=== PATIENT | female | born 1965 | race Caucasian/White ===

== ENCOUNTER 2020-01-19 16:02 | Emergency (ER) | payer MEDICARE, SELFPAY ==
--- NOTE | ~2020-01-19 | CT_ITS ---
EXAMINATION: CT abdomen pelvis w con EXAM DATE: 01/19/2020 20:04 INDICATION: Right upper quadrant pain. Symptoms 2 weeks. TECHNIQUE: Spiral CT of the abdomen and pelvis was performed following intravenous injection of 100 m L Omnipaque 350. Axial, coronal and sagittal images were reviewed. The dose-length product (DLP) fo r this examination was 1662.06 mGy-cm. The exposure was tailored according to patient size (auto mA exposure control), and iterative reconstruction (ASIR) was used as additional dose reduction techniqu e. There is no prior study for comparison. FINDINGS: There is hepatic steatosis without suspicious focal lesion identified. Spleen, adrenal glan ds, pancreas are unremarkable. There are cholecystectomy clips. Small amount of pneumobilia. The lef t kidney is not identified. The right kidney is unremarkable, no right-sided hydronephrosis. The uter us is anteverted and morphologically normal. The bladder is unremarkable. There is no retroperiton eal or pelvic lymphadenopathy. The appendix is not positively visualized. There is no pericecal inflammatory change to suggest appe ndicitis. There is mild scattered colonic diverticulosis. There is no adjacent inflammatory change t o suggest diverticulitis. The stomach and small bowel are unremarkable. There is expected amount of colonic stool. No free intraperitoneal gas. The heart is normal in size. There are no pericardia l or pleural effusions. The lung bases are unremarkable. The bones are unremarkable. IMPRESSION: 1. No acute intra-abdominal findings. 2. Scattered colonic diverticulosis. 3. Absent left kidney. Reviewed, dictated and finalized at location A.
[2020-01-19 16:03] VITALS: BP 181/89; PULSE 84; RESP 17; TEMP 36.4; O2SAT 99
[2020-01-19 16:34] LABS: Basophils Percent Auto 0.6 % (0.2-1.2); Eosinophils Absolute Auto 0.2 K/mm3 (0-0.3); Eosinophils Percent Auto 2.6 % (0-4.4); Hematocrit 41.3 % (37.0-47.0); Hemoglobin 13.4 g/dL (12.0-15.0); Immature Granulocyte Absolute 0.02 K/mm3 (0.00-0.031); Immature Granulocyte Percent A 0.3 % (0-0.5); Lymphocytes Absolute Auto 1.63 K/mm3 (0.9-3.2); Lymphocytes Percent Auto 24.5 % (18.3-44.2); Mean Corpuscular HGB Conc 32.4 g/dl (32-36); Mean Corpuscular Hemoglobin 27.6 pg (26-34); Mean Platelet Volume 8.7 fl (7.4-10.4); Monocytes Absolute Auto 0.4 K/mm3 (0.1-0.6); Monocytes Percent Auto 5.7 % (2.6-8.5); Neutrophils Absolute Auto 4.4 K/mm3 (1.3-6.7); Neutrophils Percent Auto 66.3 % (45.5-73.1); Platelet Count Result 216 k/mm3 (150-375); Red Blood Count 4.86 M/mm3 (4.2-5.4); Red Cell Distribution Width 13.7 % (11.5-14.5); White Blood Count 6.6 K/mm3 (4.5-10.0)
[2020-01-19 16:46] LABS: Alanine Aminotransferase 33 U/L (4-35); Albumin Level 3.8 g/dL (3.5-5.1); Alkaline Phosphatase 137 U/L (38-126); Anion Gap 8 mmol/L (8-16); Aspartate Amino Transferase 44 U/L (14-36); Bilirubin,Total 0.4 mg/dL (0.2-1.3); Blood Urea Nitrogen 18 mg/dL (7-17); Calcium 9.5 mg/dL (8.4-10.2); Carbon Dioxide 28 mmol/L (22-30); Chloride 100 mmol/L (98-107); Estimated CRCL calculation 89 ml/min; Estimated Glomerular Filt Rate > 60; Glucose 389 mg/dL (65-105); Lipase 135 U/L (23-300); Potassium 4.8 mmol/L (3.4-5.0); Sodium 136 mmol/L (137-145)
--- NOTE | 2020-01-19 17:26 | ED.ABDPAIN ---
HPI - Abdominal Pain General Chief Complaint: Abdominal Pain Stated Complaint: abdominal pain Time Seen by Provider: 01/19/20 17:06 Source: patient Mode of arrival: ambulatory Limitations: no limitations History of Present Illness HPI narrative: This is a 54 year old female that presents to the ER for upper abdominal pain x 2 weeks. Reports an intermittent pulling pain in the upper abdomen. Reports history of fibromyalgia and that her abdominal pain is making her fibromyalgia flare. Reports she has tried over the counter medications with little relief. Denies fever, nausea, vomiting, diarrhea, dysuria, hematuria. Related Data Allergies Allergy/AdvReac Type Severity Reaction Status Date / Time adhesive tape Allergy Severe RASH, Verified 10/04/19 09:11 BLISTERS amoxicillin Allergy Unknown RASH Verified 10/04/19 09:11 Review of Systems Review of Systems: Narrative: CONSTITUTIONAL: Denies fever CARDIOVASCULAR: Denies chest pain RESPIRATORY: Denies dyspnea. GASTROINTESTINAL: Reports abdominal pain. Denies nausea, vomiting, or diarrhea. GENITOURINARY: Denies dysuria or hematuria. MUSCULOSKELETAL: Reports back pain, joint pain, and myalgia. All systems reviewed & are unremarkable except as noted in HPI and below PMFSH Past Medical History Medical History (Updated 01/19/20 @ 22:16 by Shazia Wilkins PA-C) History of fibromyalgia History of gastroesophageal reflux (GERD) Social History Social History (System 10/04/19 @ 09:11 by Joana Abreu) Gender identity (if verbalized by the patient): Female Exam Narrative: Exam Narrative: GENERAL: Well-appearing, well-nourished, and in no acute distress. HEAD: Normocephalic, atraumatic. EYES: EOMI. CHEST: Clear to auscultation. No respiratory distress. No wheezes rales or rhonchi HEART: Regular rate and rhythm. No murmur heard. Normal peripheral pulses. ABDOMEN: Soft, nondistended, normal active bowel sounds. Mild tenderness to palpation of the epigastrium, without guarding EXTREMITIES: Normal range of motion. No edema. SKIN: Warm, dry, no rash. NEURO: No focal deficits. Alert and oriented x3. PSYCH: Normal mood and affect Course Vital Signs Vital signs: Vital Signs Temperature 97.5 F L 01/19/20 16:03 Pulse Rate 84 01/19/20 16:03 Respiratory Rate 17 01/19/20 16:03 Blood Pressure 181/89 H 01/19/20 16:03 Pulse Oximetry 99 01/19/20 16:03 Temperature 97.5 F L 01/19/20 16:03 Pulse Rate 84 01/19/20 16:03 Respiratory Rate 17 01/19/20 16:03 Blood Pressure 181/89 H 01/19/20 16:03 Pulse Oximetry 99 01/19/20 16:03 MDM - Abdominal Pain MDM Narrative Medical decision making narrative: Patient presents the emergency department for upper abdominal pain x2 weeks. She is afebrile and nontoxic-appearing. Blood pressure elevated 181/89 on arrival, this improved after pain medications. CBC is without leukocytosis. Metabolic panel significant for elevation in blood glucose to 389. Otherwise no concerning findings. Lipase is normal. UA without evidence of infection. CT scan abdomen and pelvis is without acute findings. Patient was updated on case findings. She reports continued pain even after GI cocktail, Tylenol, Pepcid, Bentyl, and Valium. Offered her admission for further evaluation of intractable abdominal pain. She would like to follow-up with her GI doctor outpatient. Patient is stable and felt appropriate for further outpatient evaluation. She was given warnings to return to the ER Lab Data Attestation: I reviewed the patient's lab results. Result diagrams: 01/19/20 16:30 01/19/20 16:30 Labs: Lab Results 01/19/20 01/19/20 01/19/20 Range/Units 16:30 16:30 20:58 WBC 6.6 (4.5-10.0) K/mm3 RBC 4.86 (4.2-5.4) M/mm3 Hgb 13.4 (12.0-15.0) g/dL Hct 41.3 (37.0-47.0) % MCV 85.0 (80-100) fl MCH 27.6 (26-34) pg MCHC 32.4 (32-36) g/dl RDW 13.7 (11.5-14.5) % Plt Count
--- NOTE | 2020-01-19 18:43 | PC.NURSE ---
Pt is hard stick. This RN tried 2 times having another RN try now.
--- NOTE | 2020-01-19 18:52 | PC.NURSE ---
Unable to gain IV access. Informed DIONNA Wilkins of this. and that pt has yet to have CTscan
[2020-01-19] MEDS: FAMOTIDINE 20 MG/2 ML VIAL IV PUSH (19:17)
[2020-01-19] MEDS: SODIUM CHLORIDE 0.9% IV 1,000 ML 999 ML IV CONT (19:18)
[2020-01-19 21:05] LABS: Glucose Point of Care 296 (65-105)
[2020-01-19] MEDS: BELLADONNA ALK/PHENOB ELIX 10 ML, MAG HYDROX/ALUMINUM HYD/SIMETH 30 ML, LIDOCAINE HCL 2... PO (21:12)
[2020-01-19] MEDS: DICYCLOMINE HCL INJ 20 MG/2 ML VIAL IM (21:13)
[2020-01-19 21:14] LABS: Add Urine Microscopic? YES; Appearance Urine Clear (Clear); Bilirubin Urine Negative (Negative); Blood Urine Negative (Negative); Color Urine Yellow (Yellow); Glucose Urine UA 3+ mg/dL (Negative); Ketones Urine Negative (Negative); Leukocyte Esterase Ur Negative LEU/UL (Negative); Nitrate Urine Negative (Negative); Protein Urine 1+ mg/dL (Negative); RBC Urine 0-2 /hpf (0-2); Squamous Epithelial Cell Urine Occasional /hpf (Few); Urobilinogen Urine Negative mg/dL (<2.0); WBC Urine 0-3 /hpf
[2020-01-19 21:16] LABS: Specific Grav Ur 1.039 (1.001-1.035)
[2020-01-19] MEDS: diazePAM INJ (*CRX) 10 MG/2 ML SYRINGE 5 MG IV PUSH (21:26)
[2020-01-19 22:23] VITALS: BP 157/90; PULSE 78; RESP 18; O2SAT 96
== END 2020-01-19 22:23 | disposition home or self-care (01) ==
PROVIDERS: Emergency Provider Family Medicine; PCP Family Medicine
DX: R10.10 Upper abdominal pain, unspecified (principal); M79.7 Fibromyalgia; K21.9 Gastro-esophageal reflux disease without esophagitis; K57.90 Diverticulosis of intestine, part unspecified, without perforation or abscess without bleeding; Z90.5 Acquired absence of kidney
CPT/HCPCS: 36415; 74177; 80053; 81001; 82948; 83690; 85025; 96365; 96372; 96375; 99284; A9270; J0131; J0500; J3360; J7030; Q9967

== ENCOUNTER → 2020-09-10 10:39 | Outpatient (CLI) | payer MEDICARE, SELFPAY ==
--- NOTE | ~2020-09-10 | XR_ITS ---
XR knee RT min 4V DATE: 09/10/2020 11:55 INDICATION: Bilateral knee pain TECHNIQUE: [place] and standing AP, PA and lateral views COMPARISON: None FINDINGS: There is severe tricompartment osteoarthritis, particularly at the patellofemoral and media l compartments, which are prominently narrowed, with prominent particular spurring at the lateral com partment as well. There is mild lateral subluxation at the femoral tibial joint. No fracture or dislocation or joint effusion. No periosteal reaction or bone destruction. No radiopaq ue intra-articular loose body or chondrocalcinosis is evident. Moderate osteopenia. IMPRESSION: Severe tricompartment osteoarthritis Reviewed, dictated and finalized at location A.
--- NOTE | ~2020-09-10 | XR_ITS ---
EXAMINATION: XR shoulder LT min 2V DATE: 09/10/2020 11:54 INDICATION: Left shoulder pain TECHNIQUE: AP internally and externally rotated, AP oblique externally rotated and axillary views of the left shoulder were obtained. COMPARISON: None FINDINGS: Normal alignment. No fracture. Severe left glenohumeral osteoarthritis. Mild left acromioclavicular osteoarthritis. Soft tissues are unremarkable. Visualized portions of the left lung are clear. IMPRESSION: Severe left glenohumeral osteoarthritis. Reviewed, dictated and finalized at location A.
--- NOTE | ~2020-09-10 | XR_ITS ---
EXAMINATION: XR shoulder RT min 2V DATE: 09/10/2020 11:54 INDICATION: Right shoulder pain TECHNIQUE: AP internally and externally rotated, AP oblique externally rotated and axillary views of the right shoulder were obtained. COMPARISON: 08/14/2015 FINDINGS: Normal alignment. No fracture. Status post distal right clavicle excision. Mild right glenohumeral o steoarthritis. Small focus of subtle amorphous calcification projecting near the posterior facet of t he greater tuberosity consistent with infraspinatus calcific tendinitis. Soft tissues are otherwise u nremarkable. Visualized portion of the right lung are clear. IMPRESSION: 1. Mild right glenohumeral osteoarthritis and chronic osteotomy the lateral right clavicle. 2. Distal right infraspinatus calcific tendinitis. Reviewed, dictated and finalized at location A. IMPRESSION: 1. Mild right glenohumeral osteoarthritis and chronic osteotomy the lateral rig ht clavicle. 2. Distal right infraspinatus calcific tendinitis.
--- NOTE | ~2020-09-10 | XR_ITS ---
XR knee LT min 4V DATE: 09/10/2020 11:55 INDICATION: Bilateral knee pain TECHNIQUE: [place] and standing AP, PA and lateral views COMPARISON: None FINDINGS: There is severe tricompartment osteoarthritis with severe narrowing of all 3 compartment wilian int spaces, very prominent periarticular spurring of the patellofemoral compartment, with spurring al so noted at the medial and particularly lateral compartments. There is mild lateral subluxation at th e femoral tibial compartment. No fracture or dislocation, periosteal reaction or bone destruction. There is moderate osteopenia. No joint effusion. IMPRESSION: Severe tricompartment osteoarthritis Osteopenia Reviewed, dictated and finalized at location A.
== END ==
PROVIDERS: PCP Family Medicine; Visit Provider Nurse Practitioner Adult Health
DX: M17.0 Bilateral primary osteoarthritis of knee (principal); M19.012 Primary osteoarthritis, left shoulder; M19.011 Primary osteoarthritis, right shoulder; M75.31 Calcific tendinitis of right shoulder
CPT/HCPCS: 73030; 73564

== ENCOUNTER → 2021-04-08 12:15 | Outpatient (CLI) | payer MEDICARE, SELFPAY ==
--- NOTE | ~2021-04-08 | XR_ITS ---
EXAMINATION: XR lumbar spine 2-3V DATE: 04/08/2021 13:02 INDICATION: Low back pain TECHNIQUE: Anteroposterior and lateral views of the lumbar spine, and cone-down lateral view of the l umbosacral junction were obtained. COMPARISON: CT, 01/19/2020 FINDINGS: There is no fracture, dislocation, or subluxation. The vertebral body heights are normal. T here is mild loss of intervertebral disc space height at L5-S1 and in the lower thoracic spine. Small degenerative osteophytes project from the anterior endplates of multiple vertebral bodies. There is mild facet osteoarthritis of the lower lumbar spine. Tubal ligation clips are noted in the left pelvi s. IMPRESSION: 1. Mild lumbar spondylosis without acute findings. Reviewed, dictated and finalized at location F. L RIGHTS REPRESENTATIVE
== END ==
PROVIDERS: PCP Family Medicine; Visit Provider Family Medicine
DX: M47.817 Spondylosis without myelopathy or radiculopathy, lumbosacral region (principal)
CPT/HCPCS: 72100

== ENCOUNTER 2022-03-22 10:27 | Emergency (ER) | payer MEDICARE, SELFPAY ==
[2022-03-22 11:05] VITALS: BP 151/91; PULSE 89; RESP 18; TEMP 36.2; O2SAT 99
--- NOTE | 2022-03-22 11:46 | ED.URI ---
HPI - URI/Sore Throat General Chief Complaint: Upper Respiratory Infection Stated Complaint: Cough,Chest Pain Time Seen by Provider: 03/22/22 11:46 Source: patient Mode of arrival: ambulatory Limitations: no limitations History of Present Illness HPI Narrative: 56-year-old female presents with complaint of cough, chest congestion for 1 week. No chest pain or shortness of breath. States that she most likely got influenza RSV from her grandson's. Had fever for 2 days but resolved. Is taking [id number] cough medication to treat her symptoms. Reports history of diabetes, wanted to make sure she did not need antibiotic. All systems reviewed and negative except as noted above. Related Data Home Medications Medication Instructions Recorded Confirmed escitalopram oxalate 10 mg tablet 10 mg DAILY 03/22/22 03/22/22 hydrocodone 10 mg-acetaminophen 1 tablet QID 03/22/22 03/22/22 325 mg tablet insulin aspart U-100 100 unit/mL 100 unit subcut DIRECTED 03/22/22 03/22/22 (3 mL) subcutaneous pen (Novolog Flexpen U-100 Insulin aspart) insulin glargine 100 unit/mL 100 unit subcut DIRECTED 03/22/22 03/22/22 subcutaneous solution (Lantus U-100 Insulin) omeprazole 40 mg capsule,delayed 40 mg DAILY 03/22/22 03/22/22 release Allergies Allergy/AdvReac Type Severity Reaction Status Date / Time adhesive tape Allergy Severe RASH, Verified 03/22/22 11:25 BLISTERS amoxicillin Allergy Unknown RASH Verified 03/22/22 11:25 Review of Systems Review of Systems: CONSTITUTIONAL: Denies fever, chills, or sweats. EYES: Denies visual changes, redness, or discharge. ENT: Reports rhinorrhea, congestion. Denies sore throat, or otalgia. CARDIOVASCULAR: Denies chest pain, palpitations, or edema. RESPIRATORY: reports cough. Denies dyspnea. GASTROINTESTINAL: Denies abdominal pain, nausea, vomiting, or diarrhea. GENITOURINARY: Denies dysuria or hematuria. SKIN: Denies rash or itching. MUSCULOSKELETAL: Denies back pain, joint pain, or myalgia. NEUROLOGIC: Denies headache, numbness, or weakness. PSYCHIATRIC: Denies anxiety or depression. All other systems reviewed are negative, except as documented in HPI. [facility] Past Medical History Medical History (Updated 03/22/22 @ 12:03 by Marilu Freeman NP) History of fibromyalgia History of gastroesophageal reflux (GERD) Social History Social History (System 10/04/19 @ 09:11 by Joana Abreu) Gender identity (if verbalized by the patient): Female Comments At time of signature, agree with nursing past medical, surgical, social and family history. There is no relevant family history pertinent to the presenting complaint. Exam Narrative: GENERAL: This is a well-nourished, well-developed patient, in no apparent distress. HEAD: normocephalic, atraumatic. EYES: PERRL. Sclera clear/white. Vision is grossly intact. EARS: External ears normal, auditory canals clear and without drainage, TMs normal without perforation. Hearing grossly intact. NOSE: External nose normal with no obvious nasal discharge, nares without redness, no rhinorrhea. THROAT: Mucous membranes moist, posterior pharynx clear. NECK: Neck supple, non-tender without lymphadenopathy, masses or thyromegaly. CARDIOVASCULAR: Regular rate and rhythm without murmurs, gallops, or rubs. RESPIRATORY: Clear to auscultation. Breath sounds equal bilaterally. No wheezes, rales, or rhonchi. SKIN: warm, Dry, intact with no suspicious lesions or rash, good texture and turgor. NEURO: awake, alert, and oriented to person, place and time. There were no obvious focal neurologic abnormalities. EXTREMITIES: No joint tenderness, effusion, or edema noted. Course Course Level of Care: Express Care Visit Vital Signs Vital signs: Vital Signs Temperature 36.2 C L 03/22/22 11:05 Pulse Rate 89 03/22/22 11:05 Respiratory Rate 18 03/22/22 11:05 Blood Pressure 151/91 H 03/22/22 11:05 Pulse Oximetry 99
== END 2022-03-22 12:12 | disposition home or self-care (01) ==
PROVIDERS: Emergency Provider Nurse Practitioner Family; PCP Family Medicine
DX: J20.9 Acute bronchitis, unspecified (principal); M79.7 Fibromyalgia; K21.9 Gastro-esophageal reflux disease without esophagitis
CPT/HCPCS: 99213; G0463

== ENCOUNTER → 2022-04-01 12:49 | Outpatient (CLI) | payer MEDICARE, SELFPAY ==
--- NOTE | ~2022-04-01 | CT_ITS ---
EXAMINATION: CT lung screening DATE: 04/01/2022 13:20 INDICATION: Personal history of nicotine dependence, prior smoker with 35 pack year history TECHNIQUE: Computed tomography (CT) of the chest was performed without intravenous contrast. The dose -length product (DLP) was 392.02 mGy-cm. Automated exposure control and iterative reconstruction tech [employer] were employed. COMPARISON: 01/19/2020 FINDINGS: There is a questionable 3 mm endobronchial nodule versus mucous in the medial right lower l obe (image 66). There is mild emphysema. The lungs are free of focal airspace opacities. No pleural e ffusion or pneumothorax. No pathologically enlarged thoracic lymph nodes are identified. The heart si ze is normal. Calcified coronary artery atherosclerosis is noted. The liver is diffusely low in atten uation when compared with the spleen, consistent with hepatic steatosis. The gallbladder is surgicall y absent. There is chronic pneumobilia in the liver. IMPRESSION: 1. Lung-RADS category 4A: Suspicious. Findings for which additional diagnostic testing is recommended . Follow-up low-dose CT in three months is recommended. Reviewed, dictated and finalized at location F. FINISHER IMPRESSION: 1. Lung-RADS category 4A: Suspicious. Findings for which additional diagnostic testing is recommended. Follow-up low-dose CT in three months is recommended.
== END ==
PROVIDERS: PCP Family Medicine; Visit Provider Family Medicine
DX: Z12.2 Encounter for screening for malignant neoplasm of respiratory organs (principal); F17.210 Nicotine dependence, cigarettes, uncomplicated; R91.8 Other nonspecific abnormal finding of lung field
CPT/HCPCS: 71271

== ENCOUNTER → 2022-10-27 15:16 | Outpatient (CLI) | payer MEDICARE, SELFPAY ==
--- NOTE | ~2022-10-27 | XR_ITS ---
Lumbosacral Spine: AP and lateral views Clinical History: Pain Findings: The normal lordotic curve is maintained. The vertebral bodies and posterior elements are i ntact. The intervertebral disc spaces are preserved. There is moderate facet arthropathy throughout the lumbar spine. The sacroiliac joints are normally outlined. Impression: Moderate facet arthropathy throughout the lumbar spine. Reviewed, dictated and finalized at location . Impression: Moderate facet arthropathy throughout the lumbar spine.
--- NOTE | ~2022-10-27 | XR_ITS ---
EXAM: XR_CERV2-3V_CR DATE: 10/27/2022 16:15 HISTORY: CERVICALGIA . COMPARISON: None available. FINDINGS: Craniocervical association and atlantoaxial joint are aligned. No prevertebral soft tissue swelling. Trace anterolistheses at C3-4 and C4-5. 2 mm retrolisthesis at C5-6. Vertebral body height s are maintained. Moderate disc space narrowing and marginal osteophytosis at C5-6. Multilevel modera te facet hypertrophy and sclerosis. IMPRESSION: Multilevel degenerative listheses. Moderate degenerative change at C5-6. Multilevel facet arthropathy. Reviewed, dictated and finalized at location K.
== END ==
PROVIDERS: PCP Family Medicine; Visit Provider Family Medicine
DX: M47.812 Spondylosis without myelopathy or radiculopathy, cervical region (principal); M47.816 Spondylosis without myelopathy or radiculopathy, lumbar region; M43.12 Spondylolisthesis, cervical region
CPT/HCPCS: 72040; 72100

== ENCOUNTER → 2022-11-17 08:16 | Outpatient (CLI) | payer MEDICARE, SELFPAY ==
--- NOTE | ~2022-11-17 | CT_ITS ---
CT Scan of the Chest without Contrast: Clinical Indication: Solitary pulmonary nodule Technique: Contiguous sections were acquired throughout the chest without intravenous contrast. Dose reduction technique was used on this scan by utilizing automated exposure control and iterative recon struction technique. The dose-length product (DLP) was 389.28 mGy-cm. COMPARISON: 04/01/2022 Findings: There is no evidence of any significant mediastinal, hilar or axillary lymphadenopathy. Coronary clemencia ry calcifications are present. There is no evidence of pleural or pericardial effusion. The lungs are clear. No pulmonary nodules or infiltrates are noted. Images through the upper abdomen reveal no abnormalities. Impression: No significant abnormalities seen. Reviewed, dictated and finalized at location . Impression: No significant abnormalities seen.
== END ==
PROVIDERS: PCP Family Medicine; Visit Provider Family Medicine
DX: R91.1 Solitary pulmonary nodule (principal)
CPT/HCPCS: 71250

== ENCOUNTER 2024-07-21 09:34 | Outpatient (CLI) | payer MEDICARE, SELFPAY ==
--- NOTE | ~2024-07-21 | CT_ITS ---
CT of the Abdomen and Pelvis: Indication: Abdominal pain Technique: 2.5 mm axial scans were obtained through the abdomen and pelvis following intravenous adm inistration of 100 cc of Omnipaque 350. Dose reduction technique was used on this scan by utilizing a utomated exposure control and iterative reconstruction technique. The dose-length product (DLP) was 1 204.17 mGy-cm. Findings: Scans through the lung bases are unremarkable. Cholecystectomy clips are present with mild pneumobilia. The liver, spleen, pancreas, adrenals and ri ght kidney are otherwise within normal limits. Left kidney absent. No evidence of aortic aneurysm. N o lymphadenopathy. No bowel obstruction or bowel wall thickening. There is no evidence to suggest acute appendicitis. Images through the pelvis were performed. Urinary bladder unremarkable. No adnexal mass seen. No asci cynthia. Impression: No acute abnormalities seen. Status post presumed prior left nephrectomy versus congenital absence of left kidney. Reviewed, dictated and finalized at [facility]. Impression: No acute abnormalities seen. Status post presumed prior left nephrectomy versus congenital absence of left k mojgan.
[2024-07-21 10:35] LABS: Estimated Glomerular Filt Rate 57
== END 2024-07-21 09:35 | disposition home or self-care (01) ==
PROVIDERS: PCP Nurse Practitioner Family; Visit Provider Nurse Practitioner Family
DX: R10.9 Unspecified abdominal pain (principal); Z90.5 Acquired absence of kidney
CPT/HCPCS: 74177; Q9967